=== PATIENT | female | born 1975 | race Caucasian/White ===

== ENCOUNTER 2017-05-02 18:31 | Emergency (ER) | payer BC, MEDICAID ==
[~2017-05-02] VITALS: Ht 170.2 cm; Wt 84.4 kg
[~2017-05-02 18:31] MED LIST: LANTUSP SQ; NRSS; ZITH250T PO
[2017-05-02 18:37] VITALS: BP 125/67; PULSE 87; RESP 16; TEMP 98.5; O2SAT 99
[2017-05-02] MEDS ORDERED: AMOX875T PO (19:32)
--- NOTE | 2017-05-02 19:32 | PD ---
HPI Chief Complaint: ENT Complaint Time Seen by Provider: 19:24 Travel History International Travel<30 days: No Contact w/Intl Traveler<30days: No Traveled to known affect area: No History of Present Illness HPI This is a 40-year-old female here with right ear pain 3 days. She reports a history of ear infections in the past. She had URI-like symptoms preceding the ear pain. Symptom severity is moderate. No aggravating or alleviating factors. PFSH Past Medical History Medical History: Denies Significant Hx Asthma: Yes (HX D/T ALLERGY TO CAT) Cancer: No Cardiovascular Problems: No High Cholesterol: Yes Diabetes: Yes (borderline -diet control) Diminished Hearing: No Endocrine: Yes GERD: Yes Genitourinary: No Immune Disorder: No Musculoskeletal: Yes Neurologic: No Psychiatric: No Reproductive: No Respiratory: Yes (asthma) Immunizations Current: Yes Tetanus Vaccination: Unknown Influenza Vaccination: No ?: Not LMP: 04/27/17 : 2 Para: 1 Tubal Ligation: Yes Past Surgical History Abdominal Surgery: Yes (C SECTION X 2, TUBAL LIGATION, APPENDECTOMY) Appendectomy: Yes (2006) Body Medical Devices: rosasia Section: Yes Pacemaker: No Other Surgery: Yes (GASTRIC BYPASS) Social History Alcohol Use: No Tobacco Use: No Substance Use: No Allergies-Medications (Allergen,Severity, Reaction): Coded Allergies: No Known Allergies (Verified Adverse Reaction, Unknown, 05/02/17) Reported Meds & Prescriptions Reported Meds & Active Scripts Active No Active Prescriptions or Reported Medications Review of Systems Except as stated in HPI: all other systems reviewed are Neg HENT: Positive: Earache Physical Exam Narrative GENERAL: Alert and well-appearing 41-year-old female SKIN: Warm and dry. HEAD: Normocephalic. EYES: No injection or drainage. Ear/nose/throat: Right TM erythema, bulging, loss of landmarks. No mastoid tenderness. Clear nasal discharge. No pharyngeal erythema or tonsillar hypertrophy or exudate. NECK: Supple CARDIOVASCULAR: Regular rate and rhythm RESPIRATORY: Breath sounds equal bilaterally. No accessory muscle use. Data Data Last Documented VS Vital Signs Date Time Temp Pulse Resp B/P (MAP) Pulse Ox O2 Delivery O2 Flow Rate FiO2 05/02/17 18:37 98.5 87 16 125/67 (86) 99 MDM Medical Decision Making Medical Screen Exam Complete: Yes Emergency Medical Condition: Yes Differential Diagnosis Otitis media, otitis externa, URI Narrative Course 41-year-old female here with right ear pain. She has otitis media. No mastoid tenderness. She'll be treated with amoxicillin. Diagnosis Primary Impression: Otitis media Qualified Codes: H66.90 - Otitis media, unspecified, unspecified ear Referrals: Primary Care Physician Additional Instructions: Tylenol and ibuprofen for pain Scripts Amoxicillin (Amoxicillin) 875 Mg Tab 875 MG PO BID for Infection for 10 Days, #20 TAB 0 Refills Prov: Jesica Martines 05/02/17 Disposition: 01 DISCHARGE HOME Condition: Stable Jesica Martines May 02, 2017 19:32
== END 2017-05-02 19:43 | disposition home or self-care (01) ==
LOC: PHEFT 18:31
DX: H66.90 Otitis media, unspecified, unspecified ear (principal)
CPT/HCPCS: 99283